=== PATIENT | female | born 1945 | race Caucasian/White ===

== ENCOUNTER 2016-12-28 16:56 | Emergency (ER) | payer MEDICARE, BC ==
[~2016-12-28] VITALS: Ht 172.7 cm; Wt 73.0 kg
[~2016-12-28 16:56] MED LIST: ASCO500C PO; ASPI81TA82 PO; CALC-179 OR; LIPI10TA OR; MOVEFREE; OMEG500C OR; TOBRA.3%O LEFT EYE; VITA100T55 OR; VITA200T5 PO
[2016-12-28 17:05] VITALS: BP 150/80; PULSE 73; RESP 16; TEMP 97.8; O2SAT 99
[2016-12-28] MEDS ORDERED: LIPI10TA PO (17:17)
[2016-12-28] MEDS ORDERED: HYDROmorphone HCL PF 1 MG/ML VIAL IVS ONE (17:30)
[2016-12-28] MEDS ORDERED: SODIUM CHLORIDE 0.9% FLUSH 10 ML FLUSH IVF PRN (17:30)
[2016-12-28] MEDS ORDERED: ONDANSETRON ODT 4 MG TAB PO/SL ONE (17:30)
[2016-12-28 17:47] LABS: BLOOD, URINE LARGE (NEG); GLUCOSE,URINE NEG (NEG); KETONE, URINE NEG (NEG); NITRITE,URINE NEG (NEG); PH, URINE 5.5 (5.0-8.5)
[2016-12-28 18:01] LABS: METHOD OF COLLECTION VOIDED; URINE COLOR BROWN (YELLW/STRAW)
[2016-12-28 18:03] LABS: CALCIUM OXALATE CRYSTALS,URINE RARE /hpf; RBC, URINE INNUM /hpf (0-3); SQUAMOUS EPITHELIAL CELL URINE 0-3 /hpf (0-5)
[2016-12-28 18:04] LABS: COMMENT (UR) CULT NOT INDICATED; CULTURE IF INDICATED CULT NOT INDICATED
--- NOTE | 2016-12-28 18:10 | RADRPT ---
EXAM DATE/TIME: 12/28/2016 17:35 [place] COMPARISON: No previous studies available for comparison. INDICATIONS : Right flank pain. Positive history of renal stones. ORAL CONTRAST: No oral contrast ingested. RADIATION DOSE: 18.45 CTDIvol (mGy) MEDICAL HISTORY : Renal calculi. Hypercholesterolemia. SURGICAL HISTORY : Hysterectomy. ENCOUNTER: Initial ACUITY: 1 day PAIN SCALE: 8/10 LOCATION: Right flank TECHNIQUE: Volumetric scanning of the abdomen and pelvis was performed. Using automated exposure control and ad justment of the mA and/or kV according to patient size, radiation dose was kept as low as reasonably achievable to obtain optimal diagnostic quality images. DICOM format image data is available electro nically for review and comparison. FINDINGS: LOWER LUNGS: The visualized lower lungs are clear. LIVER: Homogeneous density without lesion. There is no dilation of the biliary tree. No calcified gallston es. SPLEEN: Normal size without lesion. There are multiple small calcified splenic granulomas. PANCREAS: Within normal limits. KIDNEYS: The kidneys are normal in size and shape. On the left there are 2 tiny nonobstructing renal calculi i n the lower pole measuring 2-3 mm. In the right kidney there is a nonobstructing calculus in the cent ral collecting system measuring up to approximately 5 mm. There is a tiny calculus in the lower pole. There is moderate right hydronephrosis with dilatation of the right ureter approximately 2 cm to a 5 -6 mm proximal ureteral calculus. ADRENAL GLANDS: Within normal limits. VASCULAR: There is no aortic aneurysm. BOWEL/MESENTERY: The stomach, small bowel, and colon demonstrate no acute abnormality. There is no free intraperitone al air or fluid. ABDOMINAL WALL: Within normal limits. RETROPERITONEUM: There is no lymphadenopathy. BLADDER: No wall thickening or mass. REPRODUCTIVE: Within normal limits. INGUINAL: There is no lymphadenopathy or hernia. MUSCULOSKELETAL: Osteopenia, degenerative change and scoliosis are present. CONCLUSION: 1. 5-6 mm proximal right ureteral calculus with moderate hydronephrosis. 2. Small bilateral renal calculi. Noah Heller MD on December 28, 2016 at 18:05 Board Certified Radiologist. This report was verified electronically.
[2016-12-28 18:16] LABS: BACTERIA, URINE RARE /hpf
[2016-12-28] MEDS ORDERED: TAMS5CAP PO (18:26)
[2016-12-28] MEDS ORDERED: PERC5TAB12 PO (18:26)
[2016-12-28] MEDS ORDERED: PROM25TA10 PO (18:26)
--- NOTE | 2016-12-28 18:26 | PD ---
HPI . Right flank pain Chief Complaint: Flank/Kidney Pain Time Seen by Provider: 17:29 Travel History International Travel<30 days: No Contact w/Intl Traveler<30days: No Traveled to known affect area: No History of Present Illness HPI Patient presents with the chief complaint of right flank pain. Onset was about 8:30 last night. She states that it finally stopped about 1:30 AM. She states that the right flank is been sore all day today and that the severe pain returned at about 4 PM. Pain is rated at 8/10. There are no exacerbating or relieving factors. She denies any urinary symptoms such as dysuria, frequency, urgency or hematuria. She is not running a fever. Patient states she has had a previous kidney stone some years ago that this feels similar. PFSH Past Medical History High Cholesterol: Yes Diminished Hearing: No Kidney Stones: Yes Immunizations Current: Yes Tetanus Vaccination: > 5 Years Influenza Vaccination: No ?: Not Past Surgical History Eye Surgery: Yes (CATERACT) Gynecologic Surgery: Yes (HYSTERECTOMY, OVERECTOMY) Hysterectomy: Yes Other Surgery: Yes (RIGHT BREAST LUMPECTOMY) Social History Alcohol Use: No Tobacco Use: No Substance Use: No Allergies-Medications (Allergen,Severity, Reaction): Coded Allergies: Motrin (Verified Allergy, Severe, Hives, 12/28/16) Reported Meds & Prescriptions Reported Meds & Active Scripts Active Reported Lipitor (Atorvastatin Calcium) 10 Mg Tab 10 Mg PO EVERY OTHER DAY Review of Systems Except as stated in HPI: all other systems reviewed are Neg General / Constitutional: No: Fever, Chills Genitourinary: Positive: Flank Pain, No: Urgency, Frequency, Dysuria, Hematuria Physical Exam Narrative GENERAL: Patient looks uncomfortable. SKIN: Warm and dry. HEAD: Atraumatic. Normocephalic. EYES: Pupils equal and round. ENT: No nasal bleeding or discharge. Mucous membranes pink and moist. NECK: Trachea midline. CARDIOVASCULAR: Regular rate and rhythm. RESPIRATORY: No accessory muscle use. GASTROINTESTINAL: Abdomen soft, non-tender, nondistended. Positive right CVA tenderness. MUSCULOSKELETAL: No obvious deformities. No edema. NEUROLOGICAL: Awake and alert. No obvious cranial nerve deficits. Motor grossly within normal limits. Normal speech. PSYCHIATRIC: Appropriate mood and affect; insight and judgment normal. Data Data Last Documented VS Vital Signs Date Time Temp Pulse Resp B/P Pulse Ox O2 Delivery O2 Flow Rate FiO2 12/28/16 17:05 97.8 73 16 150/80 99 Orders Urinalysis - C+S If Indicated (12/28/16 17:30) Ct Abd/Pel W/O Iv Contrast (12/28/16 17:30) Ondansetron Odt (Zofran Odt) (12/28/16 17:30) Sodium Chloride 0.9% Flush (Ns Flush) (12/28/16 17:30) Hydromorphone Pf Inj (Dilaudid Pf Inj) (12/28/16 17:30) Labs Laboratory Tests Test 12/28/16 17:35 Urine Collection Type VOIDED Urine Color BROWN Urine Turbidity SLIGHT Urine pH 5.5 Urine Specific [place] 1.027 Urine Protein 30 mg/dL Urine Glucose (UA) NEG mg/dL Urine Ketones NEG mg/dL Urine Occult Blood LARGE Urine Nitrite NEG Urine Bilirubin NEG Urine Leukocyte Esterase NEG Urine RBC INNUM /hpf Urine WBC 3-5 /hpf Urine Squamous Epithelial 0-3 /hpf Cells Urine Calcium Oxalate Crystals RARE /hpf Urine Bacteria RARE /hpf Microscopic Urinalysis Comment CULT NOT INDICATED MDM Medical Decision Making Medical Screen Exam Complete: Yes Emergency Medical Condition: Yes Differential Diagnosis Differential diagnosis of flank pain includes but is not limited to kidney stone , pyelonephritis, musculoskeletal pain, PE Narrative Course Patient presents with right flank pain. She has been treated with IV Dilaudid. She is now resting comfortably. Laboratory Tests Test 12/28/16 17:35 Urine Collection Type VOIDED Urine Color BROWN Urine Turbidity SLIGHT Urine pH 5.5 Urine Specific [place] 1.027 Urine Protein 30 mg/dL Urine Glucose (UA) NEG mg/dL Urine Ketones NEG mg/dL Urine Occult Blood LARGE Urine Nitrite NEG Urine Bilirubin NEG Urine Leukocyte Esterase NEG Urine RBC INNUM /hpf Urine WBC 3-5 /hpf Urine Squamous Epithelial 0-3 /hpf Cells Urine Calcium Oxalate Crystals RARE /hpf Urine Bacteria RARE /hpf Microscopic Urinalysis Comment CULT NOT INDICATED Last Impressions Abdomen/Pelvis CT 12/28/16 1730 Signed Impressions: Service Date/Time: Wednesday, December 28, 2016 17:35 - CONCLUSION: 1. 5-6 mm proximal right ureteral calculus with moderate hydronephrosis. 2. Small bilateral renal calculi. Noah Heller MD The patient will be discharged to home on Percocet, Phenergan and Flomax. She is to follow-up with urology early next week. Diagnosis Primary Impression: Right kidney stone Referrals: Edgardo Cavazos MD 3 days Patient Instructions: General Instructions, Kidney Stones (DC), Narcotic given in the ED Med/Other Pt SpecificInfo: Prescription(s) given Scripts Tamsulosin (Flomax)0.4 Mg Cap0.4 Mg PO HS #10 CAP Ref 0 Prov:Hortencia Gunn MD 12/28/16 Promethazine (Phenergan)25 Mg [id number] Mg PO Q6H PRN (NAUSEA OR VOMITING) #12 TAB Ref 0 Prov:Hortencia Gunn MD 12/28/16 Oxycodone-Acetaminophen (Percocet)5-325 mg Tab1 Tab PO Q4H PRN (PAIN) #12 TAB Ref 0 Prov:Hortencia Gunn MD 12/28/16 Disposition: 01 DISCHARGE HOME Condition: Stable Hortencia uGnn MD Dec 28, 2016 18:26
== END 2016-12-28 18:53 | disposition home or self-care (01) ==
LOC: PHED 16:56
DX: N20.2 Calculus of kidney with calculus of ureter (principal); E78.00 Pure hypercholesterolemia, unspecified
CPT/HCPCS: 74176; 81001; 96374; 99284; J1170